=== PATIENT | female | born 1980 | race Caucasian/White ===

== ENCOUNTER 2023-12-31 21:39 | Emergency (ER) | payer BC, SELFPAY ==
[2023-12-31 21:43] VITALS: BP 122/88
[2023-12-31] MEDS: ZOFRAN ODT (ORALLY DISINTEGRATING) 4 MG PO (21:50)
[2023-12-31 22:02] LABS: Hematocrit 37.1 % (37.0-47.0); Hemoglobin 12.8 g/dL (12.0-16.0); Mean Corp Hgb Conc. 34.5 g/dL (33.0-37.0); Mean Corpuscular Hgb 32.1 pg (27.0-31.0); Mean Platelet Volume 9.1 fL (7.4-10.4); Platelet Count 304 10^3/uL (130-400); Red Blood Cell Count 3.99 10^6/uL (4.20-5.40); Red Cell Dist. Width 12.4 % (11.5-14.5); White Blood Cell Count 9.5 10^3/uL (4.8-10.8)
[2023-12-31 22:14] LABS: HCG, Serum Qualitative Screen Negative
[2023-12-31 22:18] LABS: Blood Urea Nitrogen 21 mg/dl (7-17); Calcium 8.4 mg/dl (8.4-10.2); Carbon Dioxide 18 mmol/L (22-30); Chloride 107 mmol/L (98-107); Glucose 111 mg/dl (70-99); Potassium 3.9 mmol/L (3.5-5.1); Sodium 135 mmol/L (135-145); eGFR > 60.00
--- NOTE | 2023-12-31 22:58 | ED.GENMED ---
History of Present Illness
General
Chief Complaint: Abdominal Symptoms
Source: patient
Exam Limitations: none
Time Seen by Provider: 12/31/23 22:51
Travel History
Have you had any contact with someone who has COVID-19?: No
Do you have any symptoms of coronavirus? Fever > 100 degrees, chills, cough, shortness of breath, sore throat, loss of taste or smell, muscle aches, or headache?: No
History of Present Illness
History of Present Illness:
See MDM
Past History
Past History
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
ED Past Surgical History:
Social History
Tobacco: Non-smoker
Alcohol: None
Phy Exam
Physical Exam
Physical Exam:
See MDM
Course
Orders/Labs/Results
Orders:
Orders
12/31/23 21:47
Test Result ONCE
12/31/23 21:49
Ondansetron Orally Disint [Zofran Odt (Orally Disintegrating)] 4 mg .ROUTE .STK-MED ONE
Ondansetron Orally Disint [Zofran Odt (Orally Disintegrating)] 4 mg PO NOW STA
12/31/23 21:54
Complete Blood Count/No Diff Urgent
Comprehensive Metabolic Panel Urgent
Direct Bilirubin Urgent
HCG, Serum Qualitative Screen Urgent
Lipase Urgent
Comment: ADD ON
12/31/23 22:57
Add On- LAB Urgent
Tests Added?: LFTs, lipase
0.9% Sodium Chloride 1000 ml [Nss] 1,000 ml IV BOLUS
Ketorolac [Toradol] 30 mg IV NOW STA
Ondansetron Injectable [Zofran] 4 mg IV NOW STA
US Abdomen Complete/Upper Urgent
Comment:
Reason For Exam: RUQ pain
Abnormal Lab Results
12/31/23
21:54
RBC 3.99 L 10^6/uL
(4.20-5.40)
MCH 32.1 H pg
(27.0-31.0)
Carbon Dioxide 18 L mmol/L
(22-30)
BUN 21 H mg/dl
(7-17)
Creatinine 0.4 L mg/dL
(0.6-1.0)
Glucose 111 H mg/dl
(70-99)
Direct Bilirubin 0.5 H mg/dl
(0.0-0.4)
12/31/23 21:54
12/31/23 21:54
Vital Signs
Initial and Last Documented VS:
Initial Vital Signs
Temp Pulse Resp BP Pulse Ox
97.9 F 88 24 122/88 98
12/31/23 21:43 12/31/23 21:43 12/31/23 21:43 12/31/23 21:43 12/31/23 21:43
Last Documented Vital Signs
Temp Pulse Resp BP Pulse Ox
97.9 F 88 24 122/88 98
12/31/23 21:43 12/31/23 21:43 12/31/23 21:43 12/31/23 21:43 12/31/23 21:43
MDM/Problems Addressed
Differential Diagnosis Includes:
HPI and MDM Narrative:
43-year-old female presenting with nausea and vomiting and diarrhea. This started earlier today. Her daughter had similar issues a few days ago and lasted about 24 hours. Patient acknowledges that she likely has a viral GI bug but states she
cannot keep anything down.
On exam, she does have dry mucous membranes. She does have mild tenderness to right upper quadrant. Given the pain with GI symptoms, will obtain ultrasound to rule out gallbladder pathology
Physical exam
General: Weak and fatigued
HEENT: protecting airway. Dry mucous
Neck: appears supple
CV: No evidence of cyanosis
Resp: No accessory muscle use
Abd: Non-distended. Right upper quadrant tenderness
Extremities: No deformities
Neuro: alert
Psych: Normal affect
Skin: Intact
Problems Addressed including Acute and Chronic Conditions affecting care:
1. Abdominal pain
Acuity: acute
Prognosis: stable
Details: Likely related to abdominal cramping from vomiting. Given the right upper quadrant tenderness, will obtain ultrasound rule out gallbladder pathology
2. Dehydration
Acuity: acute
Prognosis: stable
Details: Will give IV fluids
Updates
On reevaluation, patient feeling better. Ultrasound negative for acute pathology. Patient feels comfortable going home
Differential Diagnosis (but not limited to): Cholecystitis, gastroenteritis, pancreatitis
Testing considered: CT abdomen/pelvis
Drug therapy (if applicable): OTC meds, please see d/c instruction regarding Rx drugs
Amount and/or Complexity of Data Reviewed
Clinical info obtained from: Patient
External data reviewed: N/A
Labs I independently reviewed (but not limited to): White blood cell count normal. LFTs normal
Radiology: ultrasound report reviewed
Pulse Ox: not hypoxic
EKG independently reviewed: N/A
Wire Spring Relay Adjuster: N/A
Critical Care: N/A
Risk of Complication:
Social Determinants of health: Good social support
Discussed with other providers: N/A
Escalation of Care includes Admit/Obs: After being observed in the Emergency Department, pt stable for discharge.
Occasional wrong word or 'sound a like' substitutions may have occurred due to the inherent limitations of voice recognition software. Read the chart carefully and recognize, using context, where substitutions have occurred.
*Critical Care Note
Total Time (30-74mins, 75-104mins- exclusive of procedures): Not Applicable
ED Attending Note
-
Portions of this chart may have been created with voice recognition software.� Occasional wrong word or��sound alike� substitutions may have occurred due to the inherent limitations of voice recognition software.
Discharge Plan
Departure
Patient Disposition: Home (Routine Discharge)
Date of Disposition: 01/01/24
Time of Disposition: 00:31
Patient with high blood pressure during this ER visit?: No
Discharge Problem:
Gastroenteritis, Acute dehydration
Instructions: Viral Gastroenteritis, Adult (DC)
Prescriptions:
New
ondansetron 4 mg Tablet,Disintegrating
4 mg PO BIDPRN PRN (Reason: nausea/vomiting) Qty: 10 0RF
No Action
PNV cmb#95-ferrous fumarate-FA [] 1 EACH tablet
1 ea PO DAILY
acetaminophen 325 MG tablet
650 mg PO Q4HPRN PRN (Reason: mild pain) 0RF
ibuprofen 600 MG tablet
600 mg PO Q4HPRN PRN (Reason: cramps) 0RF
Referrals:
Josy Shah MD [Family Provider] -
Stand Alone Forms: Return to Work
Activity Restrictions/Additional Instructions:
Please return for any worsening symptoms.
You may return at any time if you have further concerns.
Please follow up with your doctor at the first available appointment, preferably this week.
Thank you for choosing [facility].
Interventions
Interventions:
*Risk Screen - Suicide Last Done: 12/31/23 21:43
*General Assessment Last Done: 12/31/23 23:09
*Neglect/Abuse Screening Last Done: 12/31/23 21:43
ED- Fall Risk Assessment Last Done: 12/31/23 23:09
*ED COVID-19 Vaccine History Last Done: 12/31/23 23:09
AH-Avacrm-Cfivkiufxt Assessment Last Done: 12/31/23 23:09
[2023-12-31 23:09] VITALS: BMI 27.7
[2023-12-31] MEDS: NSS 1000 IV (23:15)
[2023-12-31] MEDS: TORADOL 30 MG IV (23:19)
[2023-12-31 23:35] LABS: ALT (SGPT) 14 U/L (0-35); AST (SGOT) 21 U/L (14-36); Albumin 3.9 g/dl (3.5-5.0); Alkaline Phosphatase 57 U/L (38-126); Direct Bilirubin 0.5 mg/dl (0.0-0.4); Lipase 78 U/L (23-300); Total Bilirubin 0.8 mg/dl (0.2-1.3); Total Protein 6.5 g/dl (6.3-8.2)
[2024-01-01] MEDS: ZOFRAN IV (00:09)
[2024-01-01] MEDS: ZOFRAN 4 MG IV (02:06)
[2024-01-01 02:18] VITALS: BP 90/53
== END 2024-01-01 02:20 | disposition home or self-care (01) ==
LOC: EMR 21:39
PROVIDERS: EMERGENCY PHYSICIAN Student in an Organized Health Care Education/Training Program; FAMILY PHYSICIAN Internal Medicine
DX: K52.9 Noninfective gastroenteritis and colitis, unspecified (principal); E86.0 Dehydration; J45.909 Unspecified asthma, uncomplicated; Z86.718 Personal history of other venous thrombosis and embolism; Z88.5 Allergy status to narcotic agent; Z88.0 Allergy status to penicillin; Z91.013 Allergy to seafood; Z88.2 Allergy status to sulfonamides; Z91.018 Allergy to other foods
CPT/HCPCS: 99284; 96374; 96375; 96361; 76700; 80053; 82248; 83690; 84703; 85027

== ENCOUNTER 2024-01-03 07:14 | Emergency (ER) | payer BC, SELFPAY ==
[2024-01-03 07:15] VITALS: BP 97/62
--- NOTE | 2024-01-03 07:38 | ED.GENMED ---
Addendum entered and electronically signed by Lewis Prado DO 01/03/24 13:31:
update
looks about the same
abd is soft, mild rlq tenderness
bouce back
will check CT
Original Note:
History of Present Illness
General
Chief Complaint: Abdominal Pain
Source: patient and records
Exam Limitations: none
Time Seen by Provider: 01/03/24 07:19
Nursing documentation reviewed up to this point in time: agreed with
Travel History
Have you had any contact with someone who has COVID-19?: No
Do you have any symptoms of coronavirus? Fever > 100 degrees, chills, cough, shortness of breath, sore throat, loss of taste or smell, muscle aches, or headache?: No
History of Present Illness
History of Present Illness:
43-year-old female returns with abdominal symptoms, seen here few days ago with nausea vomiting diarrhea got some fluids and an ultrasound felt better discharged on Zofran 2 weeks ago had a strep infection treated with doxycycline, daughter's been
sick with a similar GI type illness she has had no fever no chest pain yesterday had abdominal cramping some nausea dizziness watery diarrhea mixed with black flecks no blood x 2, no abdominal pain now nondrinker non-smoker
Past History
Past History
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
ED Past Surgical History:
Social History
Tobacco: Non-smoker
Alcohol: None
Drug: None
Personal:
Living: with family
Employment: Employed
Family History
Family History: Other (Daughter with GI type)
Review of Systems
Review of Systems
All Other Systems: Not applicable
Constitutional: Reports fatigue
EENT: Reports no symptoms
Respiratory: Reports no symptoms
Cardiac: Reports no symptoms
ABD/GI: Reports nausea and diarrhea; Denies abdominal pain, bloody stools or pain
Neurological: Reports dizzy and weakness
Phy Exam
Physical Exam
Physical Exam:
Physical Exam
General: 43 female looks uncomfortable
Neck: Dry lips
Heart: s1/s2 regular rate and rhythm, no murmur. equal radial pulses.
Lungs: no acute respiratory distress. clear bilaterally
Abdomen: Soft nontender abdomen bowel sounds are present
Neuro: alert and oriented. no focal neurological deficits
Skin: no rash
Psychiatric: well kept. interactive and cooperative
Extremities: no edema. no calf tenderness.
Course
Orders/Labs/Results
Orders:
Orders
01/03/24 07:37
0.9% Sodium Chloride 1000 ml [Nss] 2,000 ml IV BOLUS
01/03/24 07:38
Electrocardiogram (*1) Urgent
Reason for Study: Abdominal Pain
EKG- Treatment ONCE
Norovirus by PCR Urgent
BERYL Source: Feces/Stool
Specimen Description:
STOOL [C difficile Antigen & Toxins] Urgent
BERYL Source: Feces/Stool
Specimen Description:
Stool Culture Urgent
BERYL Source: Feces/Stool
Specimen Description:
Test Result ONCE
01/03/24 07:53
Promethazine [Phenergan] 25 mg 0.9% Sodium Chloride 50 ml [Nss] 50 ml IV NOW
01/03/24 08:09
Complete Blood Count/With Diff Urgent
Comprehensive Metabolic Panel Urgent
HCG, Serum Qualitative Screen Urgent
Lipase Urgent
Manual Differential Urgent
01/03/24 08:43
Ketorolac [Toradol] 30 mg IV NOW STA
01/03/24 09:49
Potassium Chloride [KCl] 40 meq PO NOW STA
01/03/24 10:05
Acetaminophen [Tylenol] 650 mg PO NOW STA
Abnormal Lab Results
01/03/24
08:09
WBC 3.5 L 10^3/uL
(4.8-10.8)
RBC 3.42 L 10^6/uL
(4.20-5.40)
Hgb 11.0 L g/dL
(12.0-16.0)
Hct 32.0 L %
(37.0-47.0)
MCH 32.2 H pg
(27.0-31.0)
Potassium 3.3 L mmol/L
(3.5-5.1)
Creatinine 0.5 L mg/dL
(0.6-1.0)
Calcium 7.6 L mg/dl
(8.4-10.2)
Total Protein 5.2 L g/dl
(6.3-8.2)
Albumin 3.0 L g/dl
(3.5-5.0)
01/03/24 08:09
01/03/24 08:09
Vital Signs
Initial and Last Documented VS:
Initial Vital Signs
Temp Pulse Resp BP Pulse Ox
98.7 F 78 20 97/62 100
01/03/24 07:15 01/03/24 07:15 01/03/24 07:15 01/03/24 07:15 01/03/24 07:15
Last Documented Vital Signs
Temp Pulse Resp BP Pulse Ox
98.7 F 78 18 97/62 100
01/03/24 07:15 01/03/24 07:15 01/03/24 10:02 01/03/24 07:15 01/03/24 07:15
MDM/Problems Addressed
Differential Diagnosis Includes:
Dehydration enteritis infectious diarrhea C. difficile norovirus doubt intra-abdominal surgical process
MDM/Problems Addressed:
Nausea vomiting diarrhea
Chronic conditions affecting care:
Prior
Acute Exacerbation and/or Progression of Chronic Illness:
Daughter with GI illness, question antibiotic use
*Pulse Oximetry
Patient hypoxic: no
*EKG
Interpreted by ED Provider?: Yes
Interpretation: abnormal
Comparison EKG: no comparison EKG present
Heart Rate: 68
Rate: normal
Rhythm: sinus
Ischemia: non-specific ST changes
*Cosmetology Instructor Interpretation
Rate: normal
Interpretation: normal
Heart Rate: 70
Rhythm: sinus
*Critical Care Note
Total Time (30-74mins, 75-104mins- exclusive of procedures): Not Applicable
Data Reviewed
Review of Other/Old Records Reveals: Radiology Studies
Update Note
Update Note:
Update 950 labs noted will replete potassium
Patient resting comfortably, still with a headache, IV fluids infusing
ED Attending Note
-
Portions of this chart may have been created with voice recognition software.� Occasional wrong word or��sound alike� substitutions may have occurred due to the inherent limitations of voice recognition software.
Discharge Plan
Departure
Prescriptions:
No Action
acetaminophen 325 MG tablet
650 mg PO Q4HPRN PRN (Reason: mild pain) 0RF
ondansetron 4 mg Tablet,Disintegrating
4 mg PO BIDPRN PRN (Reason: nausea/vomiting) Qty: 10 0RF
dextroamphetamine-amphetamine [Adderall XR] 30 mg Capsule,Extended Release 24hr
30 mg PO DAILY
escitalopram oxalate [Lexapro] 20 mg Tablet
20 mg PO DAILY
Referrals:
Josy Shah MD [Family Provider] -
Interventions
Interventions:
*Risk Screen - Suicide Last Done: 01/03/24 07:15
*General Assessment Last Done: 01/03/24 07:15
*Neglect/Abuse Screening Last Done: 01/03/24 07:15
ED- Fall Risk Assessment Last Done: 01/03/24 08:24
ZE-Uafgrt-Gftfillgra Assessment Last Done: 01/03/24 08:22
[2024-01-03] MEDS: NSS 2000 IV (08:13)
[2024-01-03] MEDS: PHENERGAN 51 MG IV (08:16)
[2024-01-03 08:24] LABS: Mean Platelet Volume 9.3 fL (7.4-10.4); Nucleated Red Blood Cells % 0 %; White Blood Cell Count 3.5 10^3/uL (4.8-10.8)
[2024-01-03 08:30] LABS: Mean Corp Hgb Conc. 34.4 g/dL (33.0-37.0); Mean Corpuscular Hgb 32.2 pg (27.0-31.0); Mean Corpuscular Volume 93.6 fL (81.0-99.0); Platelet Count 260 10^3/uL (130-400); Red Blood Cell Count 3.42 10^6/uL (4.20-5.40); Red Cell Dist. Width 12.7 % (11.5-14.5)
[2024-01-03 08:45] LABS: ALT (SGPT) 12 U/L (0-35); AST (SGOT) 18 U/L (14-36); Alkaline Phosphatase 49 U/L (38-126); Blood Urea Nitrogen 8 mg/dl (7-17); Calcium 7.6 mg/dl (8.4-10.2); Carbon Dioxide 28 mmol/L (22-30); Chloride 105 mmol/L (98-107); Glucose 85 mg/dl (70-99); Potassium 3.3 mmol/L (3.5-5.1); Sodium 138 mmol/L (135-145); Total Bilirubin 0.5 mg/dl (0.2-1.3); Total Protein 5.2 g/dl (6.3-8.2); eGFR > 60.00
[2024-01-03 09:05] LABS: HCG, Serum Qualitative Screen Negative
[2024-01-03] MEDS: TORADOL 30 MG IV (09:19)
[2024-01-03 09:43] LABS: Absolute Neutrophils -Man Diff 1.7 10^3/uL (1.4-6.5); Atypical Lymphocytes 14 %; Band Neutrophils 0 % (0-3); Eosinophils 2 % (0-6); Lymphocytes 25 % (20-51); Monocytes 9 % (2-9); Platelets Checked Yes; Segmented Neutrophils 50 % (42-75)
[2024-01-03 09:44] LABS: Acanthocytes Slight; Anisocytosis Slight; Hypochromasia 1+; Normal RBC Morphology No; Ovalocytes Slight; Total Cells Counted 100
[2024-01-03 09:56] LABS: Lipase 34 U/L (23-300)
[2024-01-03] MEDS: KCL 40 MEQ PO (10:15)
[2024-01-03] MEDS: TYLENOL 650 MG PO (10:15)
[2024-01-03 10:20] VITALS: BP 101/62
[2024-01-03 12:46] VITALS: BP 97/51
[2024-01-03 16:19] VITALS: BP 99/50
== END 2024-01-03 16:21 | disposition home or self-care (01) ==
LOC: EMR 07:14
PROVIDERS: EMERGENCY PHYSICIAN Emergency Medicine; FAMILY PHYSICIAN Internal Medicine
DX: R42 Dizziness and giddiness (principal); R11.0 Nausea; R10.9 Unspecified abdominal pain; R19.7 Diarrhea, unspecified; R53.1 Weakness; R53.83 Other fatigue; R51.9 Headache, unspecified; J45.909 Unspecified asthma, uncomplicated; Z86.718 Personal history of other venous thrombosis and embolism; Z88.5 Allergy status to narcotic agent; Z88.0 Allergy status to penicillin; Z91.013 Allergy to seafood; Z88.2 Allergy status to sulfonamides; Z91.018 Allergy to other foods
CPT/HCPCS: 99285; 96375; 96361 ×3; 96374; 74177; 80053; 83690; 84703; 85025; 93005; Q9967

== ENCOUNTER → 2024-01-30 15:44 | Outpatient (REF) | payer BC, SELFPAY | LOC: HWWDC 15:44 | PROVIDERS: ATTENDING PHYSICIAN Nurse Practitioner Family; FAMILY PHYSICIAN Internal Medicine | DX: Z12.31 Encounter for screening mammogram for malignant neoplasm of breast (principal) | CPT/HCPCS: 77063; 77067 ==

== ENCOUNTER 2024-08-28 12:39 | Outpatient (RCR) | payer BC, SELFPAY | END 2024-08-28 23:59 | disposition home or self-care (01) | LOC: RPT 12:39 | PROVIDERS: ATTENDING PHYSICIAN Internal Medicine | DX: M54.12 Radiculopathy, cervical region (principal); Z73.6 Limitation of activities due to disability | CPT/HCPCS: 97110; 97162 ==

== ENCOUNTER 2024-10-16 16:00 | Outpatient (RCR) | payer BC, SELFPAY | END 2024-10-16 23:59 | disposition home or self-care (01) | LOC: RPT 16:00 | PROVIDERS: ATTENDING PHYSICIAN Internal Medicine | DX: M54.12 Radiculopathy, cervical region (principal); Z73.6 Limitation of activities due to disability | CPT/HCPCS: 97110; 97140 ==

== ENCOUNTER 2024-11-07 15:21 | Outpatient (RCR) | payer BC, SELFPAY | END 2024-11-07 23:59 | disposition home or self-care (01) | LOC: RPT 15:21 | PROVIDERS: ATTENDING PHYSICIAN Internal Medicine | DX: M54.12 Radiculopathy, cervical region (principal); Z73.6 Limitation of activities due to disability; M62.81 Muscle weakness (generalized) | CPT/HCPCS: 97010; 97012; 97110; 97112; 97140 ==

== ENCOUNTER 2024-12-17 15:10 | Outpatient (RCR) | payer BC, SELFPAY | END 2024-12-17 23:59 | disposition home or self-care (01) | LOC: RPT 15:10 | PROVIDERS: ATTENDING PHYSICIAN Internal Medicine | DX: M54.12 Radiculopathy, cervical region (principal); Z73.6 Limitation of activities due to disability; M62.81 Muscle weakness (generalized) | CPT/HCPCS: 97010; 97110; 97112; 97140 ==

== ENCOUNTER 2025-01-21 16:11 | Emergency (ER) | payer BC, SELFPAY ==
[2025-01-21 16:12] VITALS: BP 103/71
[2025-01-21 16:43] LABS: COVID-19 Antigen Negative (Negative)
--- NOTE | 2025-01-21 18:31 | ED.GENMED ---
History of Present Illness
General
Chief Complaint: Breathing Problem
Source: patient
Exam Limitations: none
Time Seen by Provider: 01/21/25 18:22
Nursing documentation reviewed up to this point in time: agreed with
History of Present Illness
History of Present Illness:
Patient with history of asthma and chronic sinusitis, presents to ED secondary to 2-week history of continual postnasal drip, along with cough and shortness of breath. Denies chest pain. Denies fever or chills. Denies nausea, vomiting, or
diarrhea. Denies headache. Denies sore throat. Denies recent travel. Denies sick contact. Denies leg pain or swelling. Denies back pain.
Past History
Past History
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
ED Past Surgical History:
Social History
Tobacco: Non-smoker
Alcohol: None
Drug: None
Personal:
Living: with family
Employment: Employed
Family History
Family History: Other (Daughter with GI type)
Review of Systems
Review of Systems
Allergies reviewed?: Yes
Constitutional: Reports no symptoms; Denies fever or chills
EENT: Reports no symptoms
Respiratory: Reports cough and trouble breathing
Cardiac: Reports no symptoms
ABD/GI: Reports no symptoms; Denies vomiting or diarrhea
Musculoskeletal: Reports no symptoms; Denies edema
Skin: Reports no symptoms
Neurological: Reports no symptoms
Phy Exam
Physical Exam
Physical Exam:
Physical Exam
General: no apparent distress, not acutely ill. afebrile
Head: nc/at. eomi
Neck: supple. no meningeal signs. normal posterior pharynx
Heart: s1/s2 regular rate and rhythm, no murmur.
Lungs: no acute respiratory distress. clear bilaterally
Abdomen: normal bowel sounds. not tender.
Neuro: alert and oriented x 3. no focal neurological deficits
Skin: no rash
Psychiatric: well kept. interactive and cooperative
Extremities: no edema. no calf tenderness.
Course
Orders/Labs/Results
Orders:
Orders
01/21/25 16:17
CR Chest - 2 Views Urgent
Comment:
Reason For Exam: shortness of breath
01/21/25 16:19
COVID-19 Antigen Urgent
Source: Nasal Swab
Influenza A+B Rapid Molecular Urgent
BERYL Source: Nasal Swab
Specimen Description:
01/21/25 18:30
Azithromycin [Zithromax] 500 mg PO NOW STA
Prednisone [Deltasone] 50 mg PO NOW STA
Vital Signs
Initial and Last Documented VS:
Initial Vital Signs
Temp Pulse Resp BP Pulse Ox
98.5 F 84 18 103/71 95
01/21/25 16:12 01/21/25 16:12 01/21/25 16:12 01/21/25 16:12 01/21/25 16:12
Last Documented Vital Signs
Temp Pulse Resp BP Pulse Ox
98.5 F 84 18 103/71 95
01/21/25 16:12 01/21/25 16:12 01/21/25 16:12 01/21/25 16:12 01/21/25 16:12
MDM/Problems Addressed
MDM/Problems Addressed:
COVID and influenza negative. Chest x-ray without acute findings.
History and exam consistent with likely acute bronchitis versus sinusitis. In light of patient's duration and worsening symptoms, difficulty exclude potential bacterial infection. As such, after discussion with patient, decision made to discharge
patient home with a Zithromax pack, which she has taken successfully in the past, along with course of prednisone. Patient states that she already has an appointment with her primary care physician in 3 days.
Patient otherwise is afebrile, hemodynamically stable, and without any acute respite distress at time of discharge.
*Critical Care Note
Total Time (30-74mins, 75-104mins- exclusive of procedures): Not Applicable
ED Attending Note
-
Portions of this chart may have been created with voice recognition software.� Occasional wrong word or��sound alike� substitutions may have occurred due to the inherent limitations of voice recognition software.
Discharge Plan
Departure
Patient Disposition: Home (Routine Discharge)
Date of Disposition: 01/21/25
Time of Disposition: 18:35
Patient with high blood pressure during this ER visit?: No
Condition: Good
Discharge Problem:
Acute bronchitis
Instructions: Acute Bronchitis, Adult (DC)
Prescriptions:
New
azithromycin [Zithromax] 250 mg tablet
250 mg PO DAILY 4 Days Qty: 4 0RF
prednisone 50 mg Tablet
50 mg PO DAILY Qty: 2 0RF
No Action
acetaminophen 325 MG tablet
650 mg PO Q4HPRN PRN (Reason: mild pain) 0RF
ondansetron 4 mg Tablet,Disintegrating
4 mg PO BIDPRN PRN (Reason: nausea/vomiting) Qty: 10 0RF
dextroamphetamine-amphetamine [Adderall XR] 30 mg Capsule,Extended Release 24hr
30 mg PO DAILY
escitalopram oxalate [Lexapro] 20 mg Tablet
20 mg PO DAILY
promethazine 25 mg tablet
25 mg PO Q6H PRN (Reason: nausea and vomiting) Qty: 10 0RF
dicyclomine 20 mg tablet
20 mg feeding tube QID PRN (Reason: abdominal pain) Qty: 10 0RF
Activity Restrictions/Additional Instructions:
As discussed, please follow-up with your primary care physician on Monday, as scheduled, for reevaluation. Your prescriptions have been sent electronically to [facility] pharmacy in [place].
Interventions
Interventions:
*Risk Screen - Suicide Last Done: 01/21/25 16:12
*General Assessment Last Done: 01/21/25 16:12
*Neglect/Abuse Screening Last Done: 01/21/25 16:12
*ED- Fall Risk Assessment Last Done: 01/21/25 18:01
*ED COVID-19 Vaccine History Last Done: 01/21/25 18:01
*Nursing Disposition Last Done: 01/21/25 18:45
ED- Cardiac Assessment Last Done: 01/21/25 18:02
ED- Pulmonary Assessment Last Done: 01/21/25 18:02
Discharge Date and Time
Discharge Date/Time: 01/21/25 18:54
Print Language: [place] CITIZ[place]
[2025-01-21] MEDS: DELTASONE 50 MG PO (18:41)
[2025-01-21] MEDS: ZITHROMAX 500 MG PO (18:41)
== END 2025-01-21 18:54 | disposition home or self-care (01) ==
LOC: EMR 16:11
PROVIDERS: EMERGENCY PHYSICIAN Emergency Medicine; FAMILY PHYSICIAN Internal Medicine
DX: J20.9 Acute bronchitis, unspecified (principal); Z11.52 Encounter for screening for COVID-19; J45.909 Unspecified asthma, uncomplicated; J32.9 Chronic sinusitis, unspecified; Z86.16 Personal history of COVID-19; Z88.5 Allergy status to narcotic agent; Z88.0 Allergy status to penicillin; Z91.013 Allergy to seafood; Z88.2 Allergy status to sulfonamides; Z91.018 Allergy to other foods
CPT/HCPCS: 99283; 71046; 87502; 87811

== ENCOUNTER → 2025-11-01 08:59 | Outpatient (REF) | payer BC, SELFPAY | LOC: WDC 08:59 | PROVIDERS: ATTENDING PHYSICIAN Internal Medicine | DX: Z12.31 Encounter for screening mammogram for malignant neoplasm of breast (principal); Z12.39 Encounter for other screening for malignant neoplasm of breast | CPT/HCPCS: 77063; 77067 ==